=== PATIENT | male | born 1950 ===

== ENCOUNTER 2019-03-28 12:42 | Outpatient (CLI) | payer OTHER ==
--- NOTE | 2019-03-28 14:22 | ULT ---
LIMITED ULTRASOUND LEFT MALE BREAST: HISTORY: Palpable abnormality right breast at approximately the 8 o'clock position. COMPARISON: Mammograms obtained at outside institution obtained on 01/13/2019. FINDINGS: At the site of patient's palpable abnormality at the 8 o'clock position, there is a well-circumscribe d echogenic mass which measures 10.9 cm x 1.1 cm in maximal dimensions, and the echogenic appearance is suggestive of fat based on sonographic evaluation. Correlation with the prior mammogram exam also demonstrates an area of fat density with a circumscribed thin margin, and this is most suggestive of a small lipoma. There is no additional hypoechoic or solid mass seen. Imaging in the retroareolar region was also performed and no abnormality is visualized. IMPRESSION: 1. BIRADS category 2, benign findings. Followup evaluation is recommended if clinically indicated. 2. Echogenic mass left breast 8 o'clock position corresponding to fat density lesion on recent mammo gram, and this is most suggestive of a small lipoma. POS: [facility]
== END 2019-03-28 12:43 | disposition home or self-care (01) ==
LOC: BICULT 12:42
DX: N63.13 Unspecified lump in the right breast, lower outer quadrant (principal); R92.2 Inconclusive mammogram